=== PATIENT | male | born 1995 | race Native Hawaiian/Other Pacific Islander ===

== ENCOUNTER 2017-10-14 20:35 | Emergency (ER) | payer BC ==
[~2017-10-14] VITALS: Ht 180.3 cm; Wt 72.7 kg
[2017-10-14 20:37] VITALS: BP 132/71; TEMP 97
[2017-10-14 21:53] VITALS: PULSE 70
== END 2017-10-14 21:55 | disposition home or self-care (01) ==
LOC: COL.ER 20:35
DX: S00.83XA Contusion of other part of head, initial encounter (principal); W20.8XXA Other cause of strike by thrown, projected or falling object, initial encounter